=== PATIENT | female | born 1945 | race Caucasian/White ===

== ENCOUNTER 2017-07-08 18:26 | Emergency (ER) | payer OTHER ==
[~2017-07-08] VITALS: Ht 162.6 cm; Wt 94.3 kg
[~2017-07-08 18:26] MED LIST: AMLODIPINE BESY10 MG; AZITHROMYCIN500 MG PO; CATAFLAM50 MG PO; GABAPENTIN100 MG; HYDROCHLOROTHIA25 MG; HYDROCHLOROTHIA25 MG PO; KETO10TA2 PO; LEVOTHROID75 MCG; LYRICA150 MG PO; NEURIN-SL; NEURONTIN300 MG; PRILOSEC20 MG PO; SIMVASTATIN20 MG; SYNTHROID50 MCG PO; TUSSIONEX PENNKI5 ML PO
== END 2017-07-08 20:08 | disposition home or self-care (01) ==
LOC: ER 18:26
DX: S76.912A Strain of unspecified muscles, fascia and tendons at thigh level, left thigh, initial encounter (principal); X50.0XXA Overexertion from strenuous movement or load, initial encounter; Y93.01 Activity, walking, marching and hiking; Y92.89 Other specified places as the place of occurrence of the external cause; Y99.8 Other external cause status

== ENCOUNTER 2018-02-12 09:16 | Emergency (ER) | payer OTHER ==
[~2018-02-12] VITALS: Ht 162.6 cm; Wt 95.3 kg
[2018-02-12] MEDS ORDERED: HYDROCHLOROTHIA25 MG (09:25)
[2018-02-12] MEDS ORDERED: LYRICA225 MG (09:25)
== END 2018-02-12 13:48 | disposition home or self-care (01) ==
LOC: ER 09:16
DX: M62.830 Muscle spasm of back (principal)

== ENCOUNTER 2018-07-15 10:00 | Emergency (ER) | payer OTHER ==
[~2018-07-15] VITALS: Ht 157.5 cm; Wt 98.0 kg
[~2018-07-15 10:00] MED LIST changes: +LYRICA225 MG
[2018-07-15] MEDS ORDERED: DICLOFENAC POTA50 MG (10:51)
[2018-07-15] MEDS ORDERED: CELEBREX100 MG PO (15:29)
== END 2018-07-15 15:48 | disposition home or self-care (01) ==
LOC: ER 10:00
DX: M25.511 Pain in right shoulder (principal); M79.621 Pain in right upper arm

== ENCOUNTER 2018-07-27 19:25 | Emergency (ER) | payer OTHER ==
[~2018-07-27] VITALS: Ht 162.6 cm; Wt 97.5 kg
[~2018-07-27 19:25] MED LIST changes: +CELEBREX100 MG PO; +DICLOFENAC POTA50 MG
== END 2018-07-27 23:19 | disposition home or self-care (01) ==
LOC: ER 19:25
DX: M71.21 Synovial cyst of popliteal space [Baker], right knee (principal); M25.561 Pain in right knee

== ENCOUNTER 2021-08-23 09:48 | Emergency (ER) | payer OTHER ==
[~2021-08-23] VITALS: Ht 162.6 cm; Wt 93.4 kg
[2021-08-23] MEDS ORDERED: SULINDAC200 MG PO (10:21)
[2021-08-23] MEDS ORDERED: LYRICA150 MG PO (10:21)
[2021-08-23] MEDS ORDERED: NAPROXEN500 MG PO (10:40)
== END 2021-08-23 10:51 | disposition home or self-care (01) ==
LOC: ER 09:48
DX: M25.551 Pain in right hip (principal); Z86.79 Personal history of other diseases of the circulatory system

== ENCOUNTER 2021-10-31 12:39 | Emergency (ER) | payer OTHER ==
[~2021-10-31] VITALS: Ht 162.6 cm; Wt 93.4 kg
[~2021-10-31 12:39] MED LIST changes: +NAPROXEN500 MG PO; +SULINDAC200 MG PO
== END 2021-10-31 14:38 ==
LOC: ER 12:39
DX: M25.552 Pain in left hip (principal); W18.30XA Fall on same level, unspecified, initial encounter; Y93.9 Activity, unspecified; Y92.9 Unspecified place or not applicable; E78.00 Pure hypercholesterolemia, unspecified; E03.9 Hypothyroidism, unspecified; I10 Essential (primary) hypertension; G62.9 Polyneuropathy, unspecified

== ENCOUNTER 2025-03-16 10:42 | Emergency (ER) | payer OTHER ==
[~2025-03-16] VITALS: Ht 162.6 cm; Wt 97.5 kg
[2025-03-16] MEDS ORDERED: LYRICA300 MG PO (11:11)
[2025-03-16] MEDS ORDERED: DOXAZOSIN MESYLA2 MG PO (11:12)
[2025-03-16] MEDS ORDERED: DULOXETINE HCL40 MG (11:13)
[2025-03-16 12:02] LABS: BASO % 0.7 % (0.1-1.2); EOS # 0.15 (0.04-0.54); EOS % 1.7 % (0.7-7.0); LYMPH # 1.54 (1.18-3.74); LYMPH % 17.3 % (19.3-53.1); MEAN PLATELET VOLUME 9.80 fl (9.4-12.4); MONO # 0.64 (0.24-0.82); MONO % 7.2 % (4.7-12.5); NEUT # 6.50 (1.56-6.13); NEUT % 72.8 % (34.0-71.1); RED CELL DISTRIBUTION WIDTH 14.1 % (11.6-14.4)
[2025-03-16 12:35] LABS: URINE APPEARANCE Clear; URINE BILIRRUBIN Negative (NEGATIVE); URINE BLOOD Negative; URINE COLOR Yellow; URINE GLUCOSE Negative (NEGATIVE); URINE KETONE Trace (NEGATIVE); URINE LEUKOCYTE Trace; URINE NITRATE Negative; URINE PROTEIN Negative (NEGATIVE); URINE UROBILINOGEN 1.0 E.U./dl
[2025-03-16 12:39] LABS: URINE BACTERIA 307.1 uL (0.0-1933); URINE EPITHELIAL CELLS 37.0 uL (0.0-38.8); URINE RBC 9.0 uL (0.0-20.8); URINE WBC 9.2 uL (0.0-23.2)
[2025-03-16 12:50] LABS: COVID-19 AG NEGATIVE (NEGATIVE)
[2025-03-16 12:56] LABS: URINE CAST 0.14 uL (0.0-1.40)
[2025-03-16] MEDS ORDERED: BACTRIM DS TAB1 EACH PO (13:05)
[2025-03-16] MEDS ORDERED: PEPCID AC20 MG PO (13:05)
== END 2025-03-16 13:27 | disposition home or self-care (01) ==
LOC: ER 10:42
PROVIDERS: General Practice
DX: R68.83 Chills (without fever) (principal); Z20.822 Contact with and (suspected) exposure to COVID-19